=== PATIENT | female | born 2000 | race Caucasian/White ===

== ENCOUNTER 2019-03-05 14:13 | Emergency (ER) | payer BC ==
[2019-03-05 14:19] VITALS: BP 146/98
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
== END 2019-03-05 14:52 | disposition home or self-care (01) ==
DX: L03.116 Cellulitis of left lower limb (principal)
CPT/HCPCS: L4350; L4386